=== PATIENT | female | born 1955 | race Caucasian/White ===

== ENCOUNTER 2019-10-15 21:24 | Emergency (ER) | payer OTHER ==
[~2019-10-15] VITALS: Ht 157.5 cm; Wt 58.5 kg
[2019-10-15 22:25] VITALS: BP_SYST 109
--- NOTE | 2019-10-15 23:15 | NUR ---
Pt did not wish to wait for evaluation
--- NOTE | 2019-10-15 23:15 | NUR ---
Patient left without being seen. No further treatment provided. ER MD aware
== END 2019-10-15 23:15 | disposition left against medical advice (07) ==
LOC: SED 21:24
DX: M79.671 Pain in right foot (principal); M79.89 Other specified soft tissue disorders; Z53.21 Procedure and treatment not carried out due to patient leaving prior to being seen by health care provider